=== PATIENT | male | born 1930 | race Caucasian/White ===

== ENCOUNTER 2017-06-22 14:01 | Outpatient (CLI) | payer MEDICARE, BC ==
[2017-06-22 19:37] LABS: BASOPHILS # (AUTO) 0.1 10^3/uL (0.0-0.1); BASOPHILS % (AUTO) 0.6 %; EOSINOPHILS # (AUTO) 0.1 10^3/uL (0.0-0.7); EOSINOPHILS % (AUTO) 0.7 %; HGB - HEMOGLOBIN 14.1 g/dL (14.0-18.0); LYMPHOCYTES # (AUTO) 1.8 10^3/uL (1.5-3.5); MEAN CORPUSCULAR HEMOGLOBIN 32.4 pg (27.0-31.0); MEAN CORPUSCULAR HGB CONC 34.3 g/dL (32.0-36.0); MEAN CORPUSCULAR VOLUME 94.4 fL (80.0-94.0); MEAN PLATELET VOLUME 10.1 fL (7.4-11.4); MONOCYTES # (AUTO) 0.8 10^3/uL (0.0-1.0); MONOCYTES % (AUTO) 8.6 %; NEUTROPHILS # (AUTO) 6.3 10^3/uL (1.5-6.6); NEUTROPHILS % (AUTO) 70.1 %; RED BLOOD COUNT 4.35 10^6/uL (4.70-6.10); RED CELL DISTRIBUTION WIDTH 13.6 % (12.0-15.0)
[2017-06-22 19:45] LABS: ALBUMIN/GLOBULIN RATIO 1.8 (1.0-2.2); BILIRUBIN,TOTAL 0.8 mg/dL (0.2-1.0); BUN - BLOOD UREA NITROGEN 26 mg/dL (6-20); CALCIUM 10.6 mg/dL (8.5-10.3); CARBON DIOXIDE - CO2 25 mmol/L (21-32); CHLORIDE 108 mmol/L (101-111); CHOL/HDL RATIO 2.6 (<5.0); CHOLESTEROL 139 mg/dL; CREATININE 1.2 mg/dL (0.6-1.2); GFR - MDRD 58 (>89); GLUCOSE 112 mg/dL (70-100); HDL CHOLESTEROL 54 mg/dL; LDL/HDL RATIO 1.3 (<3.6); POTASSIUM 4.1 mmol/L (3.5-5.0); SODIUM 140 mmol/L (135-145); TOTAL PROTEIN 6.7 g/dL (6.7-8.2); TRIGLYCERIDES 79 mg/dL; VLDL CHOLESTEROL 16 mg/dL
== END 2017-06-22 14:02 | disposition home or self-care (01) ==
LOC: LAB.N 14:01
PROVIDERS: ATTEND Internal Medicine
DX: C61 Malignant neoplasm of prostate (principal)
CPT/HCPCS: 36415; 80053; 80061; 80175; 84153; 85025

== ENCOUNTER 2017-07-04 11:17 | Outpatient (CLI) | payer MEDICARE, BC ==
[2017-07-04 14:04] LABS: CALCIUM 10.3 mg/dL (8.5-10.3)
== END 2017-07-04 11:18 | disposition home or self-care (01) ==
LOC: LAB.N 11:17
PROVIDERS: ATTEND Internal Medicine
DX: R29.898 Other symptoms and signs involving the musculoskeletal system (principal)
CPT/HCPCS: 36415; 82310; 82550; 83970

== ENCOUNTER 2018-03-15 13:51 | Emergency (ER) | payer MEDICARE, BC ==
--- NOTE | 2018-03-15 14:31 | ED Physician Documentation ---
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 Especially with walking long distances. Feels better when he crawls. He is also use tobacco to help him get around. Does not want to use a cane or a walker. Attempted to see his PCP today but was referred here for further evaluation. Patient has not been involved in physical therapy. Has no pain in the chest, abdomen, back or legs. No symptoms of claudication. Review of Systems Ten Systems: 10 systems reviewed and negative Constitutional: denies: Fever, Chills Ears: denies: Ear pain Nose: denies: Rhinorrhea / runny nose, Congestion Throat: denies: Sore throat Cardiac: denies: Chest pain / pressure Respiratory: denies: Cough : denies: Dysuria Skin: denies: Rash Musculoskeletal: denies: Neck pain, Back pain Neurologic: denies: Focal weakness, Numbness, Confused, Altered mental status, Headache PD PAST MEDICAL HISTORY - Past Medical History Cardiovascular: High cholesterol, Coronary artery disease, [place] Neuro: CVA GI: GERD : Frequency - Past Surgical History General: Colonoscopy Ortho: Other HEENT: Cataracts, Tonsil/Adenoidectomy - Present Medications Home Medications: Ambulatory Orders Medication Instructions Recorded Confirmed Atorvastatin Calcium [Lipitor] 80 mg PO DAILY 10/07/13 02/09/16 Cholecalciferol (Vitamin D3) 1,000 unit PO BIDWM 10/07/13 02/10/16 [Vitamin D-3] lamoTRIgine [LaMICtal] 50 mg PO BID 10/07/13 02/10/16 Lisinopril 20 mg PO DAILY 02/09/16 02/10/16 amLODIPine [Norvasc] 1 tab PO DAILY 02/09/16 02/10/16 Clopidogrel [Plavix] 75 03/15/18 - Allergies Allergies/Adverse Reactions: Allergies Allergy/AdvReac Type Severity Reaction Status Date / Time No Known Drug Allergies Allergy Verified 02/09/16 15:24 PD ED PE NORMAL - Vitals Vital signs reviewed: Yes - General General: Alert and oriented X 3, No acute distress - HEENT HEENT: PERRL, Moist mucous membranes - Neck Neck: Supple, no meningeal sign, No JVD, No bruit - Cardiac Cardiac: RRR, Strong equal pulses (B femoral, DP, PT, and radial.) - Respiratory Respiratory: No respiratory distress, Clear bilaterally - Abdomen Abdomen: Soft, Non tender, Non distended - Back Back: No spinal TTP - Derm Derm: Warm and dry - Extremities Extremities: No edema, No calf tenderness / cord, Other (strong PT and DP pulses B) - Neuro Neuro: Alert and oriented X 3, server service assistant 2-12 intact, No motor deficit, No sensory deficit, Normal speech, Other (slight antalgic gait, but steady. negative romberg. 4/5 strength B with dosiflexion, plantar flexion and leg extension B. ) - Psych Psych: Normal mood, Normal affect Results - Vitals Vitals: Vital Signs - 24 hr 03/15/18 03/15/18 03/15/18 13:55 15:38 16:44 Temperature 36.7 C 36.3 C L 36.6 C Heart Rate 57 L 54 L 49 L Respiratory 16 14 15 Rate Blood Pressure 155/57 H 139/114 H 168/77 H O2 Saturation 98 100 100 Oxygen O2 Source Room air - EKG (time done) 1420 Rate: Rate (enter#) (55) Rhythm: NSR [place]: LAD Intervals: Normal VA, Wide QRS Compare to prior EKG: Old EKG unavailable - Labs Labs: Laboratory Tests 03/15/18 03/15/18 03/15/18 14:25 14:26 14:26 WBC 8.9 RBC 4.32 L Hgb 13.7 L Hct 40.3 L MCV 93.2 MCH 31.6 H MCHC 33.9 RDW 13.8 Plt Count 197 MPV 9.6 Neut # 6.2 Lymph # 1.8 Cassia # 0.8 Eos # 0.1 Baso # 0.1 Absolute Nucleated RBC 0.00 Nucleated RBC % 0.0 Sodium 138 Potassium 4.1 Chloride 106 Carbon Dioxide 26 Anion Gap 6.0 BUN 18 Creatinine 1.1 Estimated GFR (MDRD) 63 L Glucose 125 H Calcium 10.5 H Phosphorus Magnesium Total Bilirubin 0.7 AST 29 ALT 27 Alkaline Phosphatase 77 Troponin I < 0.04 Total Protein 6.4 L Albumin 4.0 Globulin 2.4 Albumin/Globulin Ratio 1.7 Lipase 26 Urine Color Urine Clarity Urine pH Ur Specific [employer] Urine Protein Urine Glucose (UA) Urine Ketones Urine Occult Blood Urine Nitrite Urine Bilirubin Urine Urobilinogen Ur Leukocyte Esterase Ur Microscopic Review Urine Culture Comments 03/15/18 03/15/18 14:26 15:30 WBC RBC Hgb Hct MCV MCH MCHC RDW Plt Count MPV Neut # Lymph # Cassia # Eos # Baso # Absolute Nucleated RBC Nucleated RBC % Sodium Potassium Chloride Carbon Dioxide Anion Gap BUN Creatinine Estimated GFR (MDRD) Glucose Calcium Phosphorus 2.9 Magnesium 2.1 Total Bilirubin AST ALT Alkaline Phosphatase Troponin I Total Protein Albumin Globulin Albumin/Globulin Ratio Lipase Urine Color YELLOW Urine Clarity CLEAR Urine pH 6.5 Ur Specific [employer] 1.010 Urine Protein NEGATIVE Urine Glucose (UA) NEGATIVE Urine Ketones NEGATIVE Urine Occult Blood NEGATIVE Urine Nitrite NEGATIVE Urine Bilirubin NEGATIVE Urine Urobilinogen 1 (NORMAL) Ur Leukocyte Esterase NEGATIVE Ur Microscopic Review NOT INDICATED Urine Culture Comments NOT INDICATED - Rads (name of study) head CT Radiology: Prelim report reviewed, EMP read contemporaneously, See rad report ( no acute abnormality.) PD MEDICAL DECISION MAKING - ED course Complexity details: reviewed old records (MRI/MRA results from 2015), reviewed results, re-evaluated patient, considered differential, d/w patient, d/w family ED course: KOREY performed L is 140/146 approx 1 and R is 155/160 approx 0.97. Normal KOREY. Patient is an 87-year-old male with what appears to be weakness in the legs. Unclear etiology. Does not appear vascular in nature with normal ABIs. Does not appear to be stroke related as there is no focal neurological deficit. His prior MRIs did reveal cerebellar strokes which could be contributing to his balance which he could be misinterpreting as weakness. He is ambulating quite well in the emergency department with a walker and agrees to use a walker at home until he can follow-up with his doctor for possible physical therapy. 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 No evidence of acute symptoms today as it has been ongoing for the past month. Will have him follow-up closely with Dr. Myrick for further evaluation and care. Patient and family counseled regarding signs and symptoms for which I believe and urgent re- evaluation would be necessary. Patient with good understanding of and agreement to plan and is comfortable going home at this time This document was made in part using voice recognition software. While efforts are made to proofread this document, sound alike and grammatical errors may occur. MRI is not available today. Departure - Departure Disposition: 01 Home, Self Care Clinical Impression: Weakness Condition: Good Instructions: ED Weakness [facility]O Follow-Up: Michael Myrick MD [Primary Care Provider] - Within 1 week Comments: Return if you worsen. The cause of your symptoms is unclear today, but may be related to your past cerebellar strokes and Dr. Myrick may want an MRI of your brain. You also would likely benefit from physical therapy. You should use the walker to help you walk, so you do not fall and injure yourself. Discharge Date/Time: 03/15/18 16:53 NIHSS - Time Time: 14:30 - Level of Consciousness Level of consciousness: (0) Alert, Keenly responsive LOC Questions: (0) Answers both Q's correct LOC Commands: (0) Performs both correctly - Gaze Best Gaze: (0) Normal - Visual Visual: (0) No loss - Facial Palsy Facial Palsy: (0) Normal, symmetrical movement - Motor Arms (both separate) Motor Arm (right): (0) No drift Motor Arm (left): (0) No drift - Motor Legs (both separate) Motor Leg (right): (0) No drift Motor Leg (left): (0) No drift - Limb Ataxia Limb Ataxia: (0) Absent - Sensory Sensory: (0) Normal - Best Language Best Language: (0) No aphasia - Dysarthria Dysarthria: (0) Normal - Extinction and Inattention (formally neg Extinction and inattention: (0) No abnormality - Total Score/Results Total Score/Result: 0
[2018-03-15 14:33] LABS: BASOPHILS # (AUTO) 0.1 10^3/uL (0.0-0.1); BASOPHILS % (AUTO) 0.6 %; EOSINOPHILS # (AUTO) 0.1 10^3/uL (0.0-0.7); EOSINOPHILS % (AUTO) 1.3 %; HGB - HEMOGLOBIN 13.7 g/dL (14.0-18.0); LYMPHOCYTES # (AUTO) 1.8 10^3/uL (1.5-3.5); MEAN CORPUSCULAR HEMOGLOBIN 31.6 pg (27.0-31.0); MEAN CORPUSCULAR HGB CONC 33.9 g/dL (32.0-36.0); MEAN CORPUSCULAR VOLUME 93.2 fL (80.0-94.0); MEAN PLATELET VOLUME 9.6 fL (7.4-11.4); MONOCYTES # (AUTO) 0.8 10^3/uL (0.0-1.0); MONOCYTES % (AUTO) 9.1 %; NEUTROPHILS # (AUTO) 6.2 10^3/uL (1.5-6.6); PLT - PLATELET COUNT 197 10^3/uL (130-450); RED BLOOD COUNT 4.32 10^6/uL (4.70-6.10); RED CELL DISTRIBUTION WIDTH 13.8 % (12.0-15.0); WHITE BLOOD COUNT 8.9 x10^3/uL (4.8-10.8)
[2018-03-15 14:49] LABS: ALBUMIN/GLOBULIN RATIO 1.7 (1.0-2.2); BILIRUBIN,TOTAL 0.7 mg/dL (0.2-1.0); CALCIUM 10.5 mg/dL (8.5-10.3); CREATININE 1.1 mg/dL (0.6-1.2); TOTAL PROTEIN 6.4 g/dL (6.7-8.2)
[2018-03-15 14:57] LABS: MAGNESIUM 2.1 mg/dL (1.7-2.8); PHOSPHORUS 2.9 mg/dL (2.5-4.6)
--- NOTE | 2018-03-15 15:28 | CT Preliminary Report ---
Exam: CT HEAD W/O IMPRESSION: Generalized age-related cortical atrophic changes without evidence of acute intracranial abnormality. Chronic and senescent changes appear unchanged. See above. [facility] SITE ID: [id number]
--- NOTE | 2018-03-15 15:28 | CT Report ---
EXAM: CT HEAD EXAM DATE: 03/15/2018 03:17 PM. CLINICAL HISTORY: Off balance, h/o cerebellar infarcts. COMPARISON: MR brain 03/30/2016. TECHNIQUE: Multiaxial CT images were obtained from the foramen magnum to the vertex. Reformats: Coron al. IV contrast: None. In accordance with CT protocol optimization, one or more of the following dose reduction techniques w ere utilized for this exam: automated exposure control, adjustment of mA and/or KV based on patient s ize, or use of iterative reconstructive technique. FINDINGS: Parenchyma: No intraparenchymal hemorrhage. No evidence of mass, midline shift, or CT findings of acu te infarction. Rivera-white differentiation is distinct. Bilateral chronic microangiopathic white matte r changes are evident. Chronic right basal ganglia and anterior limb internal capsule lacunar infarct s, unchanged. Small chronic right aparicio radiata infarct, unchanged. Multiple chronic right cerebella r hemisphere infarcts, unchanged. Extraaxial Spaces: Normal for age. No subdural or epidural collections identified. Ventricles: The ventricles and cortical sulci are enlarged, consistent with age-related tissue loss. Sinuses: Minimal right maxillary mucous retention cyst. Minimal ethmoid sinus mucosal thickening. Bones: No evidence of fracture or calvarial defect. IMPRESSION: Generalized age-related cortical atrophic changes without evidence of acute intracranial abnormality. Chronic and senescent changes appear unchanged. See above. [facility] Referring Provider Line: [phone] SITE ID: [id number]
[2018-03-15 15:45] LABS: BILIRUBIN,URINE NEGATIVE (NEGATIVE); GLUCOSE, URINE (UA) NEGATIVE (NEGATIVE); KETONES,URINE (UA) NEGATIVE (NEGATIVE); LEUKOCYTE ESTERASE, URINE NEGATIVE (NEGATIVE); NITRITE,URINE NEGATIVE (NEGATIVE); OCCULT BLOOD,URINE NEGATIVE (NEGATIVE); PH,URINE 6.5 PH (5.0-7.5); PROTEIN,URINE NEGATIVE (NEGATIVE); UROBILINOGEN,URINE 1 (NORMAL) E.U./dL (NORMAL)
[2018-03-15 15:50] LABS: CLARITY,URINE CLEAR (CLEAR)
[2018-03-15 16:44] VITALS: BP 168/77
== END 2018-03-15 16:53 | disposition home or self-care (01) ==
LOC: ED 13:51
DX: R53.1 Weakness (principal); I25.2 Old myocardial infarction; R26.89 Other abnormalities of gait and mobility; Z79.02 Long term (current) use of antithrombotics/antiplatelets; Z95.1 Presence of aortocoronary bypass graft; Z86.73 Personal history of transient ischemic attack (TIA), and cerebral infarction without residual deficits
CPT/HCPCS: 36415; 70450; 80053; 81001; 81003; 83690; 83735; 84100; 84484; 85025; 87086; 93005; 99283; 99284

== ENCOUNTER 2018-07-23 13:20 | Outpatient (CLI) | payer MEDICARE, BC ==
[2018-07-23 19:11] LABS: BASOPHILS % (AUTO) 0.5 %; EOSINOPHILS # (AUTO) 0.2 10^3/uL (0.0-0.7); EOSINOPHILS % (AUTO) 1.9 %; LYMPHOCYTES # (AUTO) 2.1 10^3/uL (1.5-3.5); LYMPHOCYTES % (AUTO) 24.1 %; MEAN CORPUSCULAR HEMOGLOBIN 32.5 pg (27.0-31.0); MEAN CORPUSCULAR HGB CONC 34.4 g/dL (32.0-36.0); MEAN CORPUSCULAR VOLUME 94.5 fL (80.0-94.0); MEAN PLATELET VOLUME 10.4 fL (7.4-11.4); MONOCYTES # (AUTO) 0.6 10^3/uL (0.0-1.0); MONOCYTES % (AUTO) 7.1 %; NEUTROPHILS # (AUTO) 5.9 10^3/uL (1.5-6.6); NEUTROPHILS % (AUTO) 66.4 %; PLT - PLATELET COUNT 199 10^3/uL (130-450); RED BLOOD COUNT 4.33 10^6/uL (4.70-6.10); RED CELL DISTRIBUTION WIDTH 13.7 % (12.0-15.0); WHITE BLOOD COUNT 8.8 x10^3/uL (4.8-10.8)
[2018-07-23 19:30] LABS: ALBUMIN/GLOBULIN RATIO 1.6 (1.0-2.2); ALKALINE PHOSPHATASE 70 IU/L (42-121); ALT ALANINE AMINOTRANSFERASE 20 IU/L (10-60); AST ASPARTATE AMINOTRANSFERASE 22 IU/L (10-42); BILIRUBIN,TOTAL 0.7 mg/dL (0.2-1.0); BUN - BLOOD UREA NITROGEN 17 mg/dL (6-20); CALCIUM 10.1 mg/dL (8.5-10.3); CARBON DIOXIDE - CO2 25 mmol/L (21-32); CHLORIDE 106 mmol/L (101-111); CHOL/HDL RATIO 2.5 (<5.0); CHOLESTEROL 122 mg/dL; CREATININE 0.9 mg/dL (0.6-1.2); GFR - MDRD 80 (>89); GLUCOSE 91 mg/dL (70-100); HDL CHOLESTEROL 49 mg/dL; LDL CHOLESTEROL,CALCULATED 58 mg/dL; LDL/HDL RATIO 1.2 (<3.6); SODIUM 139 mmol/L (135-145); TOTAL PROTEIN 6.5 g/dL (6.7-8.2); VLDL CHOLESTEROL 15 mg/dL
== END 2018-07-23 13:21 | disposition home or self-care (01) ==
LOC: LAB.N 13:20
PROVIDERS: ATTEND Internal Medicine
DX: E83.52 Hypercalcemia (principal); R56.9 Unspecified convulsions; I25.10 Atherosclerotic heart disease of native coronary artery without angina pectoris; C61 Malignant neoplasm of prostate; E78.5 Hyperlipidemia, unspecified; I10 Essential (primary) hypertension; Z12.5 Encounter for screening for malignant neoplasm of prostate; Z79.899 Other long term (current) drug therapy
CPT/HCPCS: 36415; 80053; 80061; 80175; 85025; G0103; 83721; 84153

== ENCOUNTER 2018-10-22 07:21 | Day surgery (SDC) | payer MEDICARE, BC ==
[2018-10-22] MEDS ORDERED: LACTATED RINGERS 1,000 ML IV ONE (07:55)
[2018-10-22] MEDS ORDERED: fentaNYL 100 MCG/2 ML VIAL IVP ONE (08:35)
[2018-10-22] MEDS ORDERED: MIDAZOLAM 2 MG/2 ML VIAL IVP ONE (08:35)
[2018-10-22 09:42] VITALS: BP 120/57
== END 2018-10-22 07:22 | disposition home or self-care (01) ==
LOC: SDS 07:21
PROVIDERS: ATTEND Surgery
PROC: 0DBP8ZZ Excision of Rectum, Via Natural or Artificial Opening Endoscopic (ICD-10-PCS; 2018-10-22)
PROC: 0DBL8ZZ Excision of Transverse Colon, Via Natural or Artificial Opening Endoscopic (ICD-10-PCS; principal; 2018-10-22 08:15)
DX: K62.89 Other specified diseases of anus and rectum (principal); D12.3 Benign neoplasm of transverse colon; K62.1 Rectal polyp; K64.8 Other hemorrhoids; R15.9 Full incontinence of feces; K62.5 Hemorrhage of anus and rectum; R35.0 Frequency of micturition; I10 Essential (primary) hypertension; E78.5 Hyperlipidemia, unspecified; I25.2 Old myocardial infarction; Z87.891 Personal history of nicotine dependence; Z85.46 Personal history of malignant neoplasm of prostate; K57.30 Diverticulosis of large intestine without perforation or abscess without bleeding
CPT/HCPCS: 45380; 45385; J7120

== ENCOUNTER 2019-07-29 08:34 | Outpatient (CLI) | payer MEDICARE, BC ==
[2019-07-29 13:13] LABS: ALBUMIN/GLOBULIN RATIO 1.5 (1.0-2.2); ALKALINE PHOSPHATASE 66 IU/L (42-121); ALT ALANINE AMINOTRANSFERASE 20 IU/L (10-60); AST ASPARTATE AMINOTRANSFERASE 20 IU/L (10-42); BILIRUBIN,TOTAL 0.9 mg/dL (0.2-1.0); BUN - BLOOD UREA NITROGEN 17 mg/dL (6-20); CALCIUM 10.3 mg/dL (8.5-10.3); CARBON DIOXIDE - CO2 28 mmol/L (21-32); CHLORIDE 109 mmol/L (101-111); CHOL/HDL RATIO 3.1 (<5.0); CHOLESTEROL 136 mg/dL; GFR - MDRD 71 (>89); GLUCOSE 91 mg/dL (70-100); HDL CHOLESTEROL 44 mg/dL; LDL CHOLESTEROL,CALCULATED 69 mg/dL; LDL/HDL RATIO 1.6 (<3.6); SODIUM 143 mmol/L (135-145); TOTAL PROTEIN 6.7 g/dL (6.7-8.2); VLDL CHOLESTEROL 23 mg/dL
[2019-07-29 14:02] LABS: BASOPHILS # (AUTO) 0.1 10^3/uL (0.0-0.1); BASOPHILS % (AUTO) 0.6 %; EOSINOPHILS # (AUTO) 0.2 10^3/uL (0.0-0.7); EOSINOPHILS % (AUTO) 2.1 %; HGB - HEMOGLOBIN 14.8 g/dL (14.0-18.0); LYMPHOCYTES # (AUTO) 1.9 10^3/uL (1.5-3.5); LYMPHOCYTES % (AUTO) 21.3 %; MEAN CORPUSCULAR HEMOGLOBIN 32.5 pg (27.0-31.0); MEAN CORPUSCULAR HGB CONC 33.2 g/dL (32.0-36.0); MEAN CORPUSCULAR VOLUME 97.8 fL (80.0-94.0); MONOCYTES # (AUTO) 0.8 10^3/uL (0.0-1.0); MONOCYTES % (AUTO) 9.1 %; NEUTROPHILS # (AUTO) 5.9 10^3/uL (1.5-6.6); NEUTROPHILS % (AUTO) 66.4 %; PLT - PLATELET COUNT 210 10^3/uL (130-450); RED BLOOD COUNT 4.56 10^6/uL (4.70-6.10); RED CELL DISTRIBUTION WIDTH 13.1 % (12.0-15.0); WHITE BLOOD COUNT 8.9 x10^3/uL (4.8-10.8)
== END 2019-07-29 23:59 | disposition home or self-care (01) ==
LOC: LAB.N 08:34
PROVIDERS: ATTEND Family Medicine
DX: I25.10 Atherosclerotic heart disease of native coronary artery without angina pectoris (principal); G40.909 Epilepsy, unspecified, not intractable, without status epilepticus; Z79.899 Other long term (current) drug therapy
CPT/HCPCS: 36415; 80053; 80061; 80175; 83721; 84443; 85025

== ENCOUNTER 2019-07-30 10:13 | Outpatient (CLI) | payer MEDICARE, BC | END 2019-07-30 10:14 | disposition home or self-care (01) | LOC: DI 10:13 | PROVIDERS: ATTEND Family Medicine | DX: I08.0 Rheumatic disorders of both mitral and aortic valves (principal); R00.0 Tachycardia, unspecified | CPT/HCPCS: 93306 ==

== ENCOUNTER 2019-08-29 10:10 | Day surgery (SDC) | payer MEDICARE, BC ==
[2019-08-29] MEDS ORDERED: LACTATED RINGERS 1,000 ML IV ONE (10:46)
[2019-08-29] MEDS ORDERED: fentaNYL 250 MCG/5 ML VIAL IVP ONE (11:18)
[2019-08-29] MEDS ORDERED: MIDAZOLAM 2 MG/2 ML VIAL IVP ONE (11:18)
[2019-08-29 11:45] VITALS: BP 118/46
== END 2019-08-29 10:11 | disposition home or self-care (01) ==
LOC: SDS 10:10
PROVIDERS: ATTEND Surgery
PROC: 0DJD8ZZ Inspection of Lower Intestinal Tract, Via Natural or Artificial Opening Endoscopic (ICD-10-PCS; principal; 2019-08-29 11:45)
DX: Z09 Encounter for follow-up examination after completed treatment for conditions other than malignant neoplasm (principal); K57.30 Diverticulosis of large intestine without perforation or abscess without bleeding; K64.8 Other hemorrhoids; Z87.19 Personal history of other diseases of the digestive system; Z86.010 Personal history of colon polyps; I10 Essential (primary) hypertension; E78.5 Hyperlipidemia, unspecified; K21.9 Gastro-esophageal reflux disease without esophagitis; C61 Malignant neoplasm of prostate; I25.10 Atherosclerotic heart disease of native coronary artery without angina pectoris; G25.0 Essential tremor; R15.9 Full incontinence of feces; R27.9 Unspecified lack of coordination; R41.3 Other amnesia; H53.9 Unspecified visual disturbance; I35.8 Other nonrheumatic aortic valve disorders; I25.2 Old myocardial infarction; Z95.1 Presence of aortocoronary bypass graft; Z86.73 Personal history of transient ischemic attack (TIA), and cerebral infarction without residual deficits; Z87.891 Personal history of nicotine dependence
CPT/HCPCS: 45378; J7120

== ENCOUNTER 2019-09-25 11:06 | Outpatient (CLI) | payer MEDICARE, BC ==
[2019-09-25 16:16] LABS: THYROID STIMULATING HORMONE 3.97 uIU/mL (0.34-5.60)
[2019-09-25 16:20] LABS: FREE T4 (FREE THYROXINE) 0.75 ng/dL (0.58-1.64)
== END 2019-09-25 11:07 | disposition home or self-care (01) ==
LOC: LAB 11:06
PROVIDERS: ATTEND Family Medicine
DX: I70.0 Atherosclerosis of aorta (principal); R27.9 Unspecified lack of coordination; E78.5 Hyperlipidemia, unspecified; I25.10 Atherosclerotic heart disease of native coronary artery without angina pectoris; I10 Essential (primary) hypertension
CPT/HCPCS: 36415; 84439; 84443; 84481

== ENCOUNTER 2019-11-25 10:23 | Outpatient (CLI) | payer MEDICARE, BC | END 2019-11-25 10:24 | disposition home or self-care (01) | LOC: DI 10:23 | PROVIDERS: ATTEND Family Medicine | DX: I08.0 Rheumatic disorders of both mitral and aortic valves (principal); I70.0 Atherosclerosis of aorta; R27.9 Unspecified lack of coordination; E78.5 Hyperlipidemia, unspecified; I25.10 Atherosclerotic heart disease of native coronary artery without angina pectoris; I10 Essential (primary) hypertension | CPT/HCPCS: 93306 ==

== ENCOUNTER 2020-10-06 07:30 | Outpatient (CLI) | payer MEDICARE, BC ==
[2020-10-06 18:26] LABS: BASOPHILS # (AUTO) 0.1 10^3/uL (0.0-0.1); BASOPHILS % (AUTO) 0.6 %; EOSINOPHILS # (AUTO) 0.1 10^3/uL (0.0-0.7); EOSINOPHILS % (AUTO) 1.3 %; HGB - HEMOGLOBIN 14.2 g/dL (14.0-18.0); LYMPHOCYTES # (AUTO) 1.9 10^3/uL (1.5-3.5); LYMPHOCYTES % (AUTO) 21.5 %; MEAN CORPUSCULAR HEMOGLOBIN 31.3 pg (27.0-31.0); MEAN CORPUSCULAR HGB CONC 31.3 g/dL (32.0-36.0); MEAN PLATELET VOLUME 11.8 fL (7.4-11.4); MONOCYTES # (AUTO) 0.7 10^3/uL (0.0-1.0); MONOCYTES % (AUTO) 7.8 %; NEUTROPHILS # (AUTO) 6.2 10^3/uL (1.5-6.6); NEUTROPHILS % (AUTO) 68.5 %; PLT - PLATELET COUNT 213 10^3/uL (130-450); RED BLOOD COUNT 4.54 10^6/uL (4.70-6.10); RED CELL DISTRIBUTION WIDTH 13.6 % (12.0-15.0)
[2020-10-06 18:48] LABS: ALBUMIN 4.2 g/dL (3.2-5.5); ALBUMIN/GLOBULIN RATIO 1.6 (1.0-2.2); BILIRUBIN,TOTAL 1.2 mg/dL (0.2-1.0); CALCIUM 10.6 mg/dL (8.5-10.3); CREATININE 1.1 mg/dL (0.6-1.2); TOTAL PROTEIN 6.8 g/dL (6.7-8.2)
== END 2020-10-06 23:59 | disposition home or self-care (01) ==
LOC: LAB.WCP 07:30
PROVIDERS: ATTEND Family Medicine
DX: I10 Essential (primary) hypertension (principal); E03.9 Hypothyroidism, unspecified; G40.109 Localization-related (focal) (partial) symptomatic epilepsy and epileptic syndromes with simple partial seizures, not intractable, without status epilepticus; F98.8 Other specified behavioral and emotional disorders with onset usually occurring in childhood and adolescence; I35.0 Nonrheumatic aortic (valve) stenosis
CPT/HCPCS: 36415; 80053; 80175; 84443; 85025

== ENCOUNTER → 2020-10-13 | Outpatient (CLI) | payer MEDICARE, BC ==
[2020-10-13 19:02] LABS: FOLATE 8.31 ng/mL (5.90 - >24.8)
== END ==
LOC: LAB.WCP 08:00
PROVIDERS: ATTEND Family Medicine
DX: R41.3 Other amnesia (principal)
CPT/HCPCS: 36415; 81599; 82607; 82746; 86592

== ENCOUNTER 2020-11-05 15:21 | Outpatient (CLI) | payer MEDICARE, BC ==
--- NOTE | 2020-11-05 15:56 | CT Report ---
PROCEDURE: HEAD WO INDICATIONS: MEMORY LOSS TECHNIQUE: Noncontrast 4.5 mm thick angled axial sections acquired from the foramen magnum to the vertex. For r adiation dose reduction, the following was used: automated exposure control, adjustment of mA and/or kV according to patient size. COMPARISON: 03/15/2018 FINDINGS: Image quality: Excellent. CSF spaces: Basal cisterns are patent. No extra-axial fluid collections. The ventricles are symmet rosette in size and shape. Brain: No intracranial bleeds or masses. Old lacunar infarcts are noted in right basal ganglia. The re is cerebral volume loss for age, with resultant ventricular and sulcal prominence. There are jose ventricular and deep white matter chronic small vessel ischemic changes. There is intracranial inter nal carotid artery atherosclerosis. Skull and face: Calvarium and visualized facial bones appear intact, without suspicious lesions. Sinuses: Visualized sinuses and mastoids are clear. IMPRESSION: 1. No CT evidence of acute infarction, intracranial bleed, midline shift or mass effect. 2. Diffuse atrophy and mild periventricular and deep white matter chronic small vessel ischemic perry es. Old lacunar infarcts seen in right basal ganglia. Reviewed by: Chilo Marie MD on 11/05/2020 3:55 PM PST Approved by: Chilo Marie MD on 11/05/2020 3:55 PM PST Station ID: [id number]
== END 2020-11-05 15:22 | disposition home or self-care (01) ==
LOC: DI 15:21
PROVIDERS: ATTEND Family Medicine
DX: R41.3 Other amnesia (principal); G31.9 Degenerative disease of nervous system, unspecified

== ENCOUNTER 2020-11-25 14:07 | Emergency (ER) | payer MEDICARE, BC ==
--- NOTE | 2020-11-25 14:58 | CT Report ---
PROCEDURE: HEAD WO INDICATIONS: polytrauma TECHNIQUE: Noncontrast 4.5 mm thick angled axial sections acquired from the foramen magnum to the vertex. For r adiation dose reduction, the following was used: automated exposure control, adjustment of mA and/or kV according to patient size. COMPARISON: CT head 11/05/2020. FINDINGS: Image quality: Excellent. The ventricular system and cortical sulci demonstrate atrophy, consistent for patient's stated age. There are areas of hypodensity in the periventricular and subcortical white matter. There is no acut e intra or extra-axial fluid collection. No acute hemorrhage, mass lesion or midline shift. Brainst em is unremarkable. Old basal ganglia foci of lacunar ischemia are noted. Globes are symmetrical. S inuses are aerated. Osseous structures are intact. Right frontal scalp hematoma is noted. IMPRESSION: 1. No acute intracranial process. 2. Moderate atrophy and chronic microvascular ischemic changes. 3. Right frontal scalp hematoma. Reviewed by: Ariadne Bowles MD on 11/25/2020 2:57 PM PST Approved by: Ariadne Bowles MD on 11/25/2020 2:57 PM PST Station ID: [id number]
--- NOTE | 2020-11-25 15:00 | CT Report ---
PROCEDURE: CERVICAL SPINE WO INDICATIONS: poly TECHNIQUE: Noncontrast 3 mm thick sections acquired from the skull base to the T4 level. Sagittal and coronal r eformats were then constructed. For radiation dose reduction, the following was used: automated exp osure control, adjustment of mA and/or kV according to patient size. COMPARISON: None. FINDINGS: Image quality: Excellent. Bones: No fractures or dislocations. Visualized superior ribs are intact. Moderate to severe multi level degenerative disc space narrowing most notable at C5-6. Small anterior osteophytes are present. Soft tissues: Prevertebral soft tissues are normal in thickness. No paravertebral hematomas. No ap ical pneumothoraces. IMPRESSION: 1. Degenerative changes without visualized fracture. Reviewed by: Ariadne Bowles MD on 11/25/2020 2:59 PM PST Approved by: Ariadne Bowles MD on 11/25/2020 2:59 PM PST Station ID: [id number]
--- NOTE | 2020-11-25 15:03 | ED Physician Documentation ---
History of Present Illness - Stated complaint Stated Complaint: HEAD WOUND - Chief complaint Chief Complaint: Trauma Hd/Nk - Additonal information Additional information: 89-year-old male presents to the emergency department for evaluation of head trauma after a ground-level fall this afternoon. He was descending some steps tripped on the last step falling forward striking his head on the ground. He has a large hematoma surrounding the eyebrow of the right eye. He also has a jagged irregularly aspiration lateral to the right eye. No vision changes. EOMI intact. He did not lose consciousness. This gentleman is on Plavix secondary to history of coronary artery disease. Typically ambulatory without a walker. He has a steady gait here in the emergency department and feels well otherwise. Review of Systems Constitutional: reports: Reviewed and negative Eyes: denies: Loss of vision, Decreased vision, Photophobia Ears: reports: Reviewed and negative Nose: reports: Reviewed and negative Throat: reports: Reviewed and negative Cardiac: reports: Reviewed and negative Respiratory: reports: Reviewed and negative GI: reports: Reviewed and negative : reports: Reviewed and negative Skin: reports: Reviewed and negative Musculoskeletal: denies: Neck pain Neurologic: reports: Head injury. denies: Focal weakness, Numbness, Difficulty speaking, Near syncope, Syncope, Confused, Altered mental status, Headache, LOC PD PAST MEDICAL HISTORY - Past Medical History Cardiovascular: Hypertension, High cholesterol, Atrial fibrillation Respiratory: None Endocrine/Autoimmune: None GI: GI bleed, Hemorrhoids : Nocturia HEENT: None Psych: None Musculoskeletal: Osteoarthritis, Fatigue, Chronic back pain Derm: Other - Past Surgical History General: Colonoscopy Ortho: Other Cardiovascular: CABG HEENT: Cataracts, Tonsil/Adenoidectomy Derm: Skin cancer surgery - Present Medications Home Medications: Ambulatory Orders Medication Instructions Recorded Confirmed Atorvastatin Calcium [Lipitor] 80 mg PO DAILY 10/07/13 10/22/18 Cholecalciferol (Vitamin D3) 1,000 unit PO BIDWM 10/07/13 10/22/18 [Vitamin D-3] lamoTRIgine [LaMICtal] 4 mg PO BID 10/07/13 10/22/18 amLODIPine [Norvasc] 5 mg PO DAILY 02/09/16 10/22/18 Clopidogrel [Plavix] 75 mg PO DAILY 03/15/18 10/22/18 lisinopriL [Lisinopril] 1 DAILY 08/29/19 - Allergies Allergies/Adverse Reactions: Allergies Allergy/AdvReac Type Severity Reaction Status Date / Time No Known Drug Allergies Allergy Verified 11/25/20 14:15 - Social History Does the pt smoke?: No Smoking Status: Never smoker PD ED PE EXPANDED - General General: Alert, No acute distress - HEENT HEENT: PERRL, EOMI, Moist mucous membranes, Other (Large hematoma superior to the right eye. Superficial abrasion. 1.5 cm irregular laceration Chin lateral to the right eye. Extraocular movements intact. No bony deformity. No drainage from the ears or nose.) Results - Vitals Vitals: Vital Signs - 24 hr 11/25/20 14:18 Temperature 36.5 C Heart Rate 62 Respiratory 18 Rate Blood Pressure 121/106 H O2 Saturation 96 Oxygen O2 Source Room air - Rads (name of study) CT neck Radiology: Final report received (Degenerative changes without visualized fracture.) CT head Radiology: Final report received (No acute intracranial process. Moderate atrophy and chronic microvascular ischemic changes. Right frontal scalp hematoma.) Procedures - Laceration (location) right face Length in cm: 1.5 Wound type: Irregular Neurovascular status: Sensory intact, Motor intact Anesthesia: Lidocaine 1% Wound preparation: Irrigated copiously NS Skin layer closure: Interrupted, Size #-0 - enter number (4), Sutures - enter # (2) Other: Patient tolerated well, No complications, Neurovascular intact PD MEDICAL DECISION MAKING - ED course Complexity details: reviewed results, re-evaluated patient, considered differential, d/w patient ED course: 89-year-old male presents emergency department for evaluation of head injury after ground-level mechanical fall this morning at home. He is on Plavix. He has a very large hematoma above the right eye as well as a small area healed to the right eye. CT of the head shows no obvious intracranial injury. CT of the neck unremarkable. Wound next to the right eye was closed with 2 sutures. Patient is ambulatory and otherwise well-appearing here in the emergency department routine wound care and emergent return precautions discussed. Tetanus was updated on this visit. Departure - Departure Disposition: Home, Self Care Clinical Impression: Fall from ground level Scalp hematoma Qualifiers: Encounter type: initial encounter Qualified Code(s): S00.03XA - Contusion of scalp, initial encounter Laceration of face Qualifiers: Encounter type: initial encounter Qualified Code(s): S01.81XA - Laceration without foreign body of other part of head, initial encounter Condition: Stable Record reviewed to determine appropriate education?: Yes Instructions: ED Hematoma, ED Laceration All Follow-Up: Janusz Mercado MD [Primary Care Provider] - Comments: Abdoul bains are seen today in the emergency department after a fall at home. The CT of your head and neck did not show any broken bones or bleeding within the brain. You do have a large hematoma above your right eye. This is a large bruise that will likely take 1 to 2 weeks to resolve. I recommend you place a icy compress over it to help reduce swelling. The sutures in your face should be removed in 5 days. In 24 hours you may remove the dressing wash gently with warm soap and water, apply any antibiotic ointment and a simple bandage. Your tetanus is up-to-date. Please attempt to keep your wound clean and dry. Do not submerge it in dirty dishwater or bath water. Return to the emergency department if you have any concerns of infection such as redness, fevers milky drainage increased pain. Return to the emergency department for suddenly severe headache, slurred speech, arm or leg weakness. You may notice that you have a slight droopiness to the right eye due to the hematoma as well as the numbing medication that was given.
[2020-11-25] MEDS ORDERED: TETANUS/DIPHTHERIA/PERTUSSIS 0.5 ML SYRINGE IM ONE (15:16)
[2020-11-25] MEDS ORDERED: LIDOCAINE 1% 2 ML VIAL SUBQ STA (15:16)
[2020-11-25] MEDS ORDERED: BACITRACIN ZINC OINT 1 PACKET TOP STA (15:30)
[2020-11-25 15:51] VITALS: BP 114/82
== END 2020-11-25 15:51 | disposition home or self-care (01) ==
LOC: ED 14:07
DX: S01.81XA Laceration without foreign body of other part of head, initial encounter (principal); W10.8XXA Fall (on) (from) other stairs and steps, initial encounter; Y93.89 Activity, other specified
CPT/HCPCS: 12011; 36415; 70450; 72125; 90471; 90715; 99282; 99284; A9270

== ENCOUNTER 2021-04-10 13:32 | Emergency (ER) | payer MEDICARE, BC ==
[2021-04-10] MEDS ORDERED: IOVERSOL 320 100 ML VIAL IVP ONE ×2 (14:12→15:18)
--- NOTE | 2021-04-10 14:12 | ED Physician Documentation ---
PD HPI ABD PAIN - Stated complaint Stated Complaint: WEAKNESS/NAUSEA - Chief complaint Chief Complaint: Abd Pain - History obtained from History obtained from: Patient, Family - Additional information Additional information: This is an 89-year-old gentleman presents by private vehicle accompanied by his . Much of the history is from the because he has some dementia although has decent recollection of short-term events but not great. He was not feeling all well all day yesterday. Nothing specific. This morning woke up, had his cup of coffee and then laid back down on the couch and went back to sleep which is atypical. Then at 10 AM suddenly had severe left sided pelvic and groin pain. He was writhing per the . She gave him hydrocodone and now the pain is not too bad, more in the left flank now. He has had a kidney stone before and he also has a history of coronary disease, prostate cancer status post brachytherapy. He has no urinary complaints. He was nauseous when the pain was severe but is not now. He declines pain medication on initial evaluation. Review of Systems Ten Systems: 10 systems reviewed and negative Constitutional: reports: Fatigue. denies: Fever, Chills, Myalgias Throat: denies: Dental pain / toothache, Sore throat Cardiac: denies: Chest pain / pressure, Palpitations Respiratory: denies: Dyspnea, Cough GI: reports: Abdominal Pain, Nausea. denies: Abdominal Swelling, Vomiting PD PAST MEDICAL HISTORY - Past Medical History Cardiovascular: Hypertension, High cholesterol, Atrial fibrillation Respiratory: None Neuro: None Endocrine/Autoimmune: None GI: GI bleed, Hemorrhoids : Nocturia HEENT: None Psych: None Musculoskeletal: Osteoarthritis, Fatigue, Chronic back pain Derm: Other - Past Surgical History Past Surgical History: No General: Colonoscopy Ortho: Other Cardiovascular: CABG HEENT: Cataracts, Tonsil/Adenoidectomy Derm: Skin cancer surgery - Present Medications Home Medications: Ambulatory Orders Medication Instructions Recorded Confirmed Atorvastatin Calcium [Lipitor] 80 mg PO DAILY 10/07/13 10/22/18 Cholecalciferol (Vitamin D3) 1,000 unit PO BIDWM 10/07/13 10/22/18 [Vitamin D-3] lamoTRIgine [LaMICtal] 4 mg PO BID 10/07/13 10/22/18 amLODIPine [Norvasc] 5 mg PO DAILY 02/09/16 10/22/18 Clopidogrel [Plavix] 75 mg PO DAILY 03/15/18 10/22/18 lisinopriL [Lisinopril] 1 DAILY 08/29/19 HYDROcod/ACETAM 5/325 [[place] 5/325] 1 - 2 tab PO Q6H PRN #15 tablet 04/10/21 - Allergies Allergies/Adverse Reactions: Allergies Allergy/AdvReac Type Severity Reaction Status Date / Time No Known Drug Allergies Allergy Verified 04/10/21 13:53 - Social History Does the pt smoke?: No Smoking Status: Never smoker Does the pt drink ETOH?: No Does the pt have substance abuse?: No - Family History Family history: reports: Non contributory - Immunizations Immunizations are current?: Yes PD ED PE NORMAL - Vitals Vital signs reviewed: Yes - General General: No acute distress, Other (He is alert and oriented to person and place but vague on time of it and events.) - HEENT HEENT: PERRL, EOMI - Neck Neck: Supple, no meningeal sign, No bony TTP - Cardiac Cardiac: RRR, No murmur - Respiratory Respiratory: No respiratory distress, Clear bilaterally - Abdomen Abdomen: Normal bowel sounds, Soft, Non tender - Back Back: No CVA TTP, No spinal TTP - Derm Derm: Normal color, Warm and dry - Extremities Extremities: No edema, No calf tenderness / cord - Neuro Neuro: No motor deficit, No sensory deficit, Normal speech Eye Opening: Spontaneous Motor: Obeys Commands Results - Vitals Vitals: Vital Signs - 24 hr 04/10/21 04/10/21 13:48 13:53 Temperature 36.5 C 36.6 C Heart Rate 55 L 55 L Respiratory 11 L 12 Rate Blood Pressure 203/79 H 203/79 H O2 Saturation 98 98 Oxygen O2 Source Room air - Labs Labs: Laboratory Tests 04/10/21 04/10/21 04/10/21 14:15 14:15 15:28 WBC 11.2 H RBC 4.18 L Hgb 13.4 L Hct 40.9 L MCV 97.8 H MCH 32.1 H MCHC 32.8 RDW 13.0 Plt Count 179 MPV 11.1 Neut # (Auto) 9.4 H Lymph # (Auto) 0.8 L [place] # (Auto) 0.9 Eos # (Auto) 0.0 Baso # (Auto) 0.0 Absolute Nucleated RBC 0.00 Nucleated RBC % 0.0 Sodium 140 Potassium 3.9 Chloride 106 Carbon Dioxide 26 Anion Gap 8.0 BUN 19 Creatinine 1.5 H Estimated GFR (MDRD) 44 L Glucose 123 H Calcium 10.3 Total Bilirubin 1.1 H AST 16 ALT 15 Alkaline Phosphatase 86 Total Protein 6.5 L Albumin 3.8 Globulin 2.7 Albumin/Globulin Ratio 1.4 Lipase 24 Urine Color YELLOW Urine Clarity CLEAR Urine pH 5.5 Ur Specific [place] <=1.005 Urine Protein NEGATIVE Urine Glucose (UA) NEGATIVE Urine Ketones TRACE Urine Occult Blood TRACE-LYSE Urine Nitrite NEGATIVE Urine Bilirubin NEGATIVE Urine Urobilinogen 1 (NORMAL) Ur Leukocyte Esterase NEGATIVE Ur Microscopic Review NOT INDICATED Urine Culture Comments NOT INDICATED - Rads (name of study) CTA Abd/Pel Radiology: EMP read contemporaneously PD MEDICAL DECISION MAKING - ED course ED course: 89-year-old gentleman with improved left flank and groin pain today. Has a history of kidney stones. Differential diagnosis also includes vascular emergencies such as dissection and AAA, diverticulitis. Work-up demonstrates evidence of a left UVJ stone measuring 3 x 6 mm. Incidental findings also of gallstones. He declined pain medication while here. No evidence of infectious etiology. Is relatively pain-free here since his had given him hydrocodone prior to arrival. I did discuss the radiologist interpretation of the specifics of the gallstone meriting surgical consultation with our on-call surgeon, Dr. Anjel Kaufman by phone. He did not feel there was any need for surgical consultation or elective cholecystectomy for gallstones of any size unless symptomatic. Departure - Departure Disposition: 01 Home, Self Care Clinical Impression: Renal colic, Gallstones Condition: Good Record reviewed to determine appropriate education?: Yes Instructions: ED Stone Renal W Colic Prescriptions: HYDROcod/ACETAM 5/325 [[place] 5/325] 1 - 2 tab PO Q6H PRN #15 tablet PRN Reason: Pain Comments: Prescription was sent electronically to [facility] You have a kidney stone today, that is the cause of your pain. It measures 3 x 6 mm. It is almost in the bladder. I suspect it will not need urology consultation but if having ongoing problems in a few days talk with your doctor about a urology referral. You also have gallstones, our surgeon does not feel this needs consultation unless they become symptomatic. 1. Far distal left ureteral stone measuring 3 x 6 mm causing moderate hydronephrosis and hydroureter to that level. No additional urinary tract stone is present causing obstruction. I am prescribing a short course of narcotic pain medication for you. These are potentially dangerous and addictive medications that should be used carefully. These medications may constipate you. Take an eapi-yba-mhupgru stool softener (docusate) twice daily with plenty of water while taking these medications. If you go 24 hours without a bowel movement, take ztto-coh-jolzyls miralax, per package instructions. Do not drink or drive while taking these medications. If you received narcotic or sedating medications while in the emergency department, do not drive for 24 hours. Store this medication in a safe, secure place and out of reach of children. It is a violation of federal law to give or sell this medication to another person or to use in a manner other than prescribed. The ED will not refill narcotic prescriptions, including prescriptions lost or stolen. To dispose of unwanted medications: 1. [facility] at [address] in [place] has a medication drop box. They accept prescription medications (in pill form) Monday through Monday 9:00 a.m. to 5:00 p.m. 2. [facility] accepts prescription medications (in pill form only) for disposal year round. Call for more information. 3. Contact the [facility] for the next [facility] sponsored prescription drug collection event. , [phone], or [phone]; Note that many narcotic pain relievers also contain Tylenol/acetaminophen. Please ensure that your total dose of acetaminophen from all sources does not exceed 3 g (3000 mg) per day.
[2021-04-10 14:27] LABS: BASOPHILS % (AUTO) 0.4 %; EOSINOPHILS % (AUTO) 0.1 %; HCT - HEMATOCRIT 40.9 % (42.0-52.0); HGB - HEMOGLOBIN 13.4 g/dL (14.0-18.0); LYMPHOCYTES # (AUTO) 0.8 10^3/uL (1.5-3.5); LYMPHOCYTES % (AUTO) 6.7 %; MEAN CORPUSCULAR HEMOGLOBIN 32.1 pg (27.0-31.0); MEAN CORPUSCULAR HGB CONC 32.8 g/dL (32.0-36.0); MEAN CORPUSCULAR VOLUME 97.8 fL (80.0-94.0); MEAN PLATELET VOLUME 11.1 fL (7.4-11.4); MONOCYTES # (AUTO) 0.9 10^3/uL (0.0-1.0); MONOCYTES % (AUTO) 8.3 %; NEUTROPHILS # (AUTO) 9.4 10^3/uL (1.5-6.6); PLT - PLATELET COUNT 179 10^3/uL (130-450); RED BLOOD COUNT 4.18 10^6/uL (4.70-6.10); WHITE BLOOD COUNT 11.2 x10^3/uL (4.8-10.8)
[2021-04-10 14:41] LABS: ALBUMIN 3.8 g/dL (3.2-5.5); ALBUMIN/GLOBULIN RATIO 1.4 (1.0-2.2); BILIRUBIN,TOTAL 1.1 mg/dL (0.2-1.0); CALCIUM 10.3 mg/dL (8.5-10.3); CREATININE 1.5 mg/dL (0.6-1.2); POTASSIUM 3.9 mmol/L (3.5-5.0); TOTAL PROTEIN 6.5 g/dL (6.7-8.2)
--- NOTE | 2021-04-10 15:22 | CT Report ---
PROCEDURE: ANGIO ABDOMEN/PELVIS W INDICATIONS: Left abd pain CONTRAST: IV CONTRAST: Optiray 320 ml: 100 PO CONTRAST: *NO PO CONTRAST TECHNIQUE: After the administration of intravenous contrast, 2 and 5 mm sections acquired from the diaphragm to the iliac crests. 3-dimensional maximum intensity projection (MIP) coronal and sagittal reformats, a nd/or 3-dimensional volume rendering reformatting was then performed. For radiation dose reduction, the following was used: automated exposure control, adjustment of mA and/or kV according to patient size. COMPARISON: CT abdomen/pelvis 11/02/2016. FINDINGS: Image quality: Excellent. Extravascular tissues: Lung bases are clear. Heart size is normal. Liver and spleen are normal in size and enhancement. The spleen contains several punctate granulomatous calcifications. Gallbladder contains at least 3 small calcified gallstones of a size that easily could transit into the cystic d uct or common duct Biliary system is non dilated. Pancreas enhances normally. No adrenal nodules. Kidneys are normal in size and enhancement, without right-sided hydronephrosis. There is moderate l eft-sided hydronephrosis and hydroureter traversing inferiorly to the bladder level where a 3 x 6 mm calculus is impacted at the distal ureter Non-opacified bowel loops demonstrate normal wall thickness and caliber. No free fluid or air. No retroperitoneal or mesenteric adenopathy. No ventral hernia s. No suspicious bony abnormalities. No vertebral body compression fractures. Abdominal aorta: Normal in caliber, no dissection found. Mesenteric arteries: No aneurysm or dissection seen. No stenosis identified. Renal arteries: No aneurysm or dissection seen, no stenosis identified. IMPRESSION: 1. Far distal left ureteral stone measuring 3 x 6 mm causing moderate hydronephrosis and hydroureter to that level. No additional urinary tract stone is present causing obstruction. 2. 3 small gallstones are present within the gallbladder lumen showing no evidence of acute cholecyst itis or adjacent biliary obstruction. However, these small stones are of a size that easily could tra nsit into the cystic duct and common duct. Given this finding follow-up by ultrasound and elective fo llow-up surgical consultation may be warranted. 3. Punctate splenic calcifications consistent with old granulomatous disease. Reviewed by: Roland Staples MD on 04/10/2021 2:21 PM AKDT Approved by: Roland Staples MD on 04/10/2021 2:21 PM AKDT Station ID: [id number]
[2021-04-10 15:38] LABS: BILIRUBIN,URINE NEGATIVE (NEGATIVE); GLUCOSE, URINE (UA) NEGATIVE (NEGATIVE); KETONES,URINE (UA) TRACE mg/dL (NEGATIVE); LEUKOCYTE ESTERASE, URINE NEGATIVE (NEGATIVE); NITRITE,URINE NEGATIVE (NEGATIVE); OCCULT BLOOD,URINE TRACE-LYSE (NEGATIVE); PH,URINE 5.5 PH (5.0-7.5); PROTEIN,URINE NEGATIVE (NEGATIVE); UROBILINOGEN,URINE 1 (NORMAL) E.U./dL (NORMAL)
[2021-04-10 15:39] LABS: CLARITY,URINE CLEAR (CLEAR)
[2021-04-10 16:01] VITALS: BP 163/103
== END 2021-04-10 16:03 | disposition home or self-care (01) ==
LOC: ED 13:32
DX: N13.2 Hydronephrosis with renal and ureteral calculous obstruction (principal); K80.80 Other cholelithiasis without obstruction; I10 Essential (primary) hypertension; I48.91 Unspecified atrial fibrillation; Z95.1 Presence of aortocoronary bypass graft; F03.90 Unspecified dementia, unspecified severity, without behavioral disturbance, psychotic disturbance, mood disturbance, and anxiety
CPT/HCPCS: 36415; 74174; 80053; 81003; 83690; 85025; 99284; Q9967; 81001; 87086

== ENCOUNTER 2021-04-15 08:00 | Outpatient (CLI) | payer MEDICARE, BC ==
[2021-04-15 17:53] LABS: BASOPHILS # (AUTO) 0.1 10^3/uL (0.0-0.1); BASOPHILS % (AUTO) 0.6 %; EOSINOPHILS # (AUTO) 0.1 10^3/uL (0.0-0.7); EOSINOPHILS % (AUTO) 1.4 %; HCT - HEMATOCRIT 42.8 % (42.0-52.0); HGB - HEMOGLOBIN 13.7 g/dL (14.0-18.0); LYMPHOCYTES # (AUTO) 2.2 10^3/uL (1.5-3.5); LYMPHOCYTES % (AUTO) 23.2 %; MEAN CORPUSCULAR HEMOGLOBIN 31.5 pg (27.0-31.0); MEAN CORPUSCULAR VOLUME 98.4 fL (80.0-94.0); MEAN PLATELET VOLUME 12.1 fL (7.4-11.4); MONOCYTES # (AUTO) 0.8 10^3/uL (0.0-1.0); MONOCYTES % (AUTO) 8.3 %; NEUTROPHILS # (AUTO) 6.2 10^3/uL (1.5-6.6); PLT - PLATELET COUNT 259 10^3/uL (130-450); RED BLOOD COUNT 4.35 10^6/uL (4.70-6.10); RED CELL DISTRIBUTION WIDTH 12.9 % (12.0-15.0); WHITE BLOOD COUNT 9.4 x10^3/uL (4.8-10.8)
[2021-04-15 18:12] LABS: CALCIUM 10.4 mg/dL (8.5-10.3); CREATININE 1.5 mg/dL (0.6-1.2); POTASSIUM 3.6 mmol/L (3.5-5.0)
== END 2021-04-15 23:59 | disposition home or self-care (01) ==
LOC: LAB.WCP 08:00
PROVIDERS: ATTEND Family Medicine
DX: E86.0 Dehydration (principal)
CPT/HCPCS: 36415; 80048; 85025